=== PATIENT | female | born 1975 | race Hispanic/Latino ===

== ENCOUNTER 2022-03-27 14:12 | Emergency (ER) | payer BC, OTHER ==
[~2022-03-27] VITALS: Ht 160 cm; Wt 65.8 kg
[2022-03-27 14:46] LABS: BASOPHILS % (AUTO) 0.4 % (0.0-5.0); EOSINOPHILS % (AUTO) 0.6 % (0.0-8.0); HEMATOCRIT 40.4 % (36-48); LYMPHOCYTES % (AUTO) 15.2 % (21.0-51.0); MEAN CORPUSCULAR HEMOGLOBIN 29.2 pg (27.0-33.0); MEAN CORPUSCULAR HGB CONC 33.2 g/dL (32.0-36.0); MONOCYTES % (AUTO) 6.3 % (3.0-13.0); NEUTROPHILS % (AUTO) 77.2 % (40.0-77.0); PLATELET COUNT (AUTO) 258 K/uL (130-400); RED BLOOD CELL COUNT(AUTO) 4.59 MIL/uL (4.00-5.50); WHITE BLOOD COUNT (AUTO) 10.8 K/uL (4.8-10.8)
[2022-03-27 14:54] LABS: CREATININE 0.8 mg/dL (0.5-1.5)
[2022-03-27 14:57] LABS: APPEARANCE,URINE Clear (CLEAR); BILIRUBIN,URINE Negative (NEGATIVE); COLOR,URINE Yellow (YELLOW); GLUCOSE, URINE (UA) Negative (NEGATIVE); KETONES,URINE Negative (NEGATIVE); LEUKOCYTE ESTERASE ,URINE Trace (NEGATIVE); NITRATE,URINE Negative (NEGATIVE); OCCULT BLOOD,URINE Negative (NEGATIVE); PH,URINE 7.5 (5.0-8.0); PROTEIN,URINE Negative (NEGATIVE); UROBILINOGEN,URINE 0.2 mg/dL (0.2-1.0)
[2022-03-27 14:59] LABS: ALBUMIN 3.3 g/dL (3.5-5.0)
[2022-03-27 15:24] LABS: HCG,QUALITATIVE URINE NEGATIVE (NEGATIVE)
[2022-03-27] MEDS ORDERED: MORPHINE 2 MG SYG IVP ONE (15:30)
[2022-03-27] MEDS ORDERED: ONDANSETRON 4MG INJ IVP ONE (15:30)
[2022-03-27] MEDS ORDERED: KETOROLAC 15MG/ML VIAL (15MG/ML) IV ONE (15:30)
[2022-03-27] MEDS ORDERED: 0.9% NACL 500ML IV.SOLN 500 ML IV ONE (15:30)
[2022-03-27 15:32] LABS: BACTERIA,URINE Rare /HPF (None Seen); RBC,URINE None Seen /HPF (0-1); SQUAMOUS EPITHELIAL CELL,UR 0-2 /HPF (0-2); WBC,URINE 0-1 /HPF (0-1)
[2022-03-27] MEDS ORDERED: BACI1CAP6 PO (16:41)
[2022-03-27] MEDS ORDERED: NAPR500T6 PO (16:41)
[2022-03-27] MEDS ORDERED: ONDA4TAB10 PO (16:41)
[2022-03-27 17:28] VITALS: BP 117/64
== END 2022-03-27 17:31 | disposition home or self-care (01) ==
LOC: EDH 14:12
DX: K80.20 Calculus of gallbladder without cholecystitis without obstruction (principal); R19.7 Diarrhea, unspecified
CPT/HCPCS: 99285; 96374; 76705; 71045; 96375; 96361; 80053; 83690; 85025; 81001; 81025; 36415; J7040; J2405; J1885